=== PATIENT | female | born 1975 | race Hispanic/Latino ===

== ENCOUNTER 2018-04-06 08:12 | Emergency (ER) | payer BC ==
--- NOTE | 2018-04-06 08:37 | ER ---
Nurse's Notes [facility] Name: Mai Jama Age: 42 yrs Sex: Female : 1975 Arrival Date: 04/06/2018 Time: 08:15 Bed 16 Private MD: Diagnosis: Ingrowing nail Presentation: 04/06 08:21 Presenting complaint: Patient states: ingrown toenail x 2-3 days. Transition of care: ss patient was not received from another setting of care. Onset of symptoms was April 03, 2018. Risk Assessment: Do you want to hurt yourself or someone else? Patient reports no desire to harm self or others. Initial Sepsis Screen: Does the patient meet any 2 criteria? No. Patient's initial sepsis screen is negative. Does the patient have a suspected source of infection? No. Patient's initial sepsis screen is negative. Care prior to arrival: None. 08:21 Method Of Arrival: Ambulatory ss 08:21 Acuity: ZEINAB 5 ss Historical: - Allergies: 08:22 No Known Allergies; ss - PMHx: 08:22 None; ss - PSHx: 08:22 None; ss - Immunization history:: Adult Immunizations up to date. - Social history:: Smoking status: Patient/guardian denies using tobacco. - Ebola Screening: : Patient denies exposure to infectious person Patient denies travel to an Ebola-affected area in the 21 days before illness onset. Screenin:28 Abuse screen: Denies threats or abuse. Denies injuries from another. Nutritional jl7 screening: No deficits noted. Tuberculosis screening: No symptoms or risk factors identified. Fall Risk None identified. Assessment: 08:28 General: Appears in no apparent distress. Behavior is calm, cooperative. Pain: jl7 Complains of pain in Right first toenail Pain currently is 10 out of 10 on a pain scale. Neuro: Level of Consciousness is awake, alert, obeys commands, Oriented to person, place, time, situation. Cardiovascular: Patient's skin is warm and dry. Respiratory: Airway is patent Respiratory effort is even, unlabored, Respiratory pattern is regular, symmetrical. Derm: Skin is pink, warm \T\ dry. Musculoskeletal: Swelling present in Right first toenail. Vital Signs: 08:28 BP 100 / 77; Pulse 81; Resp 16; Pulse Ox 100% ; Pain 10/10; jl7 ED Course: 08:15 Patient arrived in ED. mr 08:19 Bruno Machuca MD is Attending Physician. 08:21 Triage completed. 08:22 Arm band placed on right wrist. 08:24 Mychal Rivera, RN is Primary Nurse. jl7 08:28 Patient has correct armband on for positive identification. Bed in low position. Call jl7 light in reach. Side rails up X 1. Pulse ox on. NIBP on. 08:28 No provider procedures requiring assistance completed. Patient did not have IV access jl7 during this emergency room visit. 08:36 Luis Johns DPM is Referral Physician. gs Administered Medications: No medications were administered Outcome: 08:36 Discharge ordered by . 08:48 Discharged to home ambulatory. 7 08:48 Condition: stable 08:48 Discharge instructions given to patient, family, Instructed on discharge instructions, follow up and referral plans. medication usage, Demonstrated understanding of instructions, follow-up care, medications, Prescriptions given X 2. 08:48 Patient left the ED. jl7 Signatures: Nanda Carranza Shelby, RN RN Mychal Rivera, GILBERTO RN jl7 Bruno Machuca MD MD
--- NOTE | 2018-04-06 08:37 | EDPHYS ---
Physician Documentation [facility] Name: Mai Jama Age: 42 yrs Sex: Female : 1975 Arrival Date: 04/06/2018 Time: 08:15 Bed 16 Private MD: ED Physician Bruno Machuca HPI: 04/06 08:25 This 42 yrs old Female presents to ER via Ambulatory with complaints of Toe gs pain. 08:25 The patient presents with ingrown nails. The complaints affect the right foot, Right gs first toenail. Onset: The symptoms/episode began/occurred 2 day(s) ago. Associated signs and symptoms: Pertinent positives: swelling, Pertinent negatives: calf tenderness, fever, numbness. Severity of symptoms: At their worst the symptoms were mild, in the emergency department the symptoms are unchanged. The patient has not experienced similar symptoms in the past. Historical: - Allergies: 08:22 No Known Allergies; ss - PMHx: 08:22 None; ss - PSHx: 08:22 None; ss - Immunization history:: Adult Immunizations up to date. - Social history:: Smoking status: Patient/guardian denies using tobacco. - Ebola Screening: : Patient denies exposure to infectious person Patient denies travel to an Ebola-affected area in the 21 days before illness onset. ROS: 08:25 All other systems are negative. gs Exam: 08:25 Constitutional: The patient appears alert, awake. gs 08:25 Musculoskeletal/extremity: Extremities: noted in the right foot: ingrown nail, Circulation is intact in all extremities. 08:25 Skin: cellulitis, is not appreciated. Vital Signs: 08:28 BP 100 / 77; Pulse 81; Resp 16; Pulse Ox 100% ; Pain 10/10; jl7 MDM: 08:23 Patient medically screened. gs 08:25 Differential diagnosis: cellulitis, ingrown nail. Data reviewed: vital signs, nurses gs notes. Counseling: I had a detailed discussion with the patient and/or guardian regarding: the historical points, exam findings, and any diagnostic results supporting the discharge/admit diagnosis, the need for outpatient follow up. Administered Medications: No medications were administered Disposition: 04/06/18 08:36 Discharged to Home. Impression: Ingrowing nail. - Condition is Stable. - Discharge Instructions: Ingrown Toenail. - Prescriptions for Keflex 500 mg Oral Capsule - take 1 capsule by ORAL route every 6 hours for 7 days; 28 capsule. Tramadol 50 mg Oral Tablet - take 1 tablet by ORAL route every 8 hours as needed; 8 tablet. - Medication Reconciliation Form, Thank You Letter, Antibiotic Education, Prescription Opioid Use form. - Follow up: Emergency Department; When: 1 - 2 days; Reason: Re-evaluation by your physician. Follow up: Luis Johns, KAMALA; When: 2 - 3 days; Reason: Re-evaluation by your physician. Signatures: Lynda Kwan RN RN ss Mychal Rivera RN RN jl7 Bruno Machuca MD MD Corrections: (The following items were deleted from the chart) 08:48 08:36 04/06/2018 08:36 Discharged to Home. Impression: Ingrowing nail. Condition is jl7 Stable. Forms are Medication Reconciliation Form, Thank You Letter, Antibiotic Education, Prescription Opioid Use. Follow up: Emergency Department; When: 1 - 2 days; Reason: Re-evaluation by your physician. Follow up: Luis Johns; When: 2 - 3 days; Reason: Re-evaluation by your physician. gs
== END 2018-04-06 08:48 | disposition home or self-care (01) ==
LOC: ER 08:12
DX: L60.0 Ingrowing nail (principal)
CPT/HCPCS: 99283